=== PATIENT | female | born 2000 | race Caucasian/White ===

== ENCOUNTER → 2018-06-19 | Outpatient (CLI) | payer BC ==
[~2018-06-19] MED LIST: AMOX-559 PO; AMPH30TA10 PO; CHOL400C10 PO; DULO60CA56 PO; Magic Mouthwash PO; PSYL0.5235 PO; oral birth control PO
--- NOTE | 2018-06-23 15:04 | RT HOLTER TEST ---
FACILITY: [facility] - [place] PATIENT NAME: JILL SAENZ : [id number] MR: [id number] V: [id number] EXAM DATE: ORDERING PHYSICIAN: JOSÉ ANTONIO KATE TECHNOLOGIST: ALDA Hook-up date: 2018-06-19 11:49:00 Duration: 28:07:00 Test Indications: I42.9 Medications: [id number] QRS complexes 1 Ventricular ectopics which represent <1 % of total QRS comp. 4 Supraventricular ectopics which represent <1 % of total QRS comp. * Paced QRS complexes which represent % of total QRS comp. VENTRICULAR ECTOPY 1 Isolated 0 Bigeminal Cycles 0 Couplets 0 Runs 0 Beats in Runs * Beats LONGEST at * BPM at :: -- * Beats FASTEST at * BPM at :: -- SUPRAVENTRICULAR ECTOPY 0 Isolated 2 Couplets 0 Runs 0 Beats in Runs * Beats LONGEST at * BPM at :: -- * Beats FASTEST at * BPM at :: -- HEART RATES 57 MIN at 05:02:42 2018-06-20 95 AVG 173 MAX at 13:01:56 2018-06-19 LONGEST RR 1.336 secs at 11:59:04 2018-06-20 S-T LEVELS Channel 1 -12.800 mm MIN at 11:49:00 2018-06-19 -12.800 mm MAX at 11:49:00 2018-06-19 Channel 2 -12.800 mm MIN at 11:49:00 2018-06-19 -12.800 mm MAX at 11:49:00 2018-06-19 Channel 3 -12.800 mm MIN at 11:49:00 2018-06-19 -12.800 mm MAX at 11:49:00 2018-06-19 It appears there is an ectopic atrial focus intermittently throughout the recording. No significant ventricular ectopy was noted. No couplets, triplets, or runs. No pauses were recorded. Confirmed by LUKE DUARTE ([id number] on 06/23/2018 3:03:34 PM Referred By: Overread By: LUKE DUARTE
== END ==
LOC: RESP 06:05
PROVIDERS: ATTEND Emergency Medicine
DX: I42.9 Cardiomyopathy, unspecified (principal)
CPT/HCPCS: 93225; 93226